=== PATIENT | male | born 1960 | race Caucasian/White ===

== ENCOUNTER 2023-04-15 21:15 | Observation (INO) | payer OTHER, BC, SELFPAY ==
[2023-04-15] VITALS (8 sets, daily range): BP systolic 165–229; BP diastolic 97–117; PULSE 65–79; RESP 13–20; TEMP 36.9; O2SAT 97–98; BMI 25.8
[2023-04-15] MEDS: ONDANSETRON 4 MG/2 ML INJ IV (21:36)
[2023-04-15 21:43] LABS: Add Manual Diff / Slide Review NO; Basophils Absolute Auto 0 /uL (0-100); Basophils Percent Auto 0.2 % (0-2); Eosinophils Absolute Auto 0 /uL (0-450); Eosinophils Percent Auto 0.2 % (2-4); Hematocrit 41.2 % (41-53); Hemoglobin 14.7 g/dL (13.5-17.5); Lymphocytes Absolute Auto 1200 /uL (1100-4500); Lymphocytes Percent Auto 7.3 % (25-40); Mean Corpuscular HGB Conc 35.6 % (30-36); Mean Corpuscular Hemoglobin 32.3 PG (26-34); Mean Corpuscular Volume 90.7 fL (80-100); Monocytes Absolute Auto 1100 /uL (0-900); Monocytes Percent Auto 6.4 % (3-14); Neutrophils Absolute Auto 14700 /uL (1500-7000); Neutrophils Percent Auto 85.9 % (50-75); Platelet Count 269 X10^3/uL (150-400); Red Blood Cell Count 4.54 X10^6/uL (4.5-5.9); White Blood Cell Count 17.1 X10^3/uL (4.5-11.0)
[2023-04-15 21:55] LABS: Alanine Aminotransferase 27 IU/L (<50); Albumin 4.7 g/dL (3.5-5.0); Albumin Globulin Ratio 1.4 (1.0-2.8); Alkaline Phosphatase 54 U/L (38-126); Aspartate Aminotransferase 27 IU/L (17-59); BUN Creatinine Ratio 20.3 (6-22); Bilirubin Total 1.1 mg/dL (0.2-1.3); Blood Urea Nitrogen 15 mg/dL (9-20); Calcium 9.4 mg/dL (8.4-10.2); Carbon Dioxide 26 mmol/L (22-32); Chloride 100 mmol/L (98-107); Estimated Glomerular Filt Rate > 60 mL/min (>60); Globulin 3.3 g/dL (1.7-4.1); Glucose 118 mg/dL (80-110); HEMOLYSIS 15 (0-50); Lipase 288 U/L (23-300); Potassium 4.2 mmol/L (3.4-5.1); Sodium 135 mmol/L (137-145)
[2023-04-15 22:27] LABS: Bacteria Urine Occasional (0-1); Mucus Urine 2+ (Negative); RBC Urine 10-30/HPF (0-5/HPF); Squamous Epithelial Cell Urine 0-1 /HPF (0-5/HPF); WBC Urine 0-1/HPF (0-5/HPF)
[2023-04-15 22:28] LABS: Culture Indicated Urine Cult Not Indicated
--- NOTE | 2023-04-15 22:35 | DI.CT.S_ITS ---
PROCEDURE: CT ABDOMEN PELVIS W CON INDICATIONS: abdominal pain, right side with leukocytosis TECHNIQUE: After the administration of IV contrast, axial sections were acquired from the lung bases to the pubic symphysis. Coronal and sagittal reformats were performed. For radiation dose reduction, the following was used: automated exposure control, adjustment of mA and/or kV according to patient size. COMPARISON: None. FINDINGS: Image quality: Excellent. Lung bases: Unremarkable. Heart: Heart is normal in size. ABDOMEN: Liver: No mass lesion. Gallbladder: Within normal limits without calcified gallstones. Biliary ducts: No biliary ductal dilatation. Pancreas: Unremarkable. Spleen: Normal in size. Adrenal Glands: No adrenal nodules. Kidneys and Ureters: No hydronephrosis. There are bilateral renal cysts as well as smaller low-density foci in the kidneys which are too small to characterize but likely represent cysts. Focal renal cortical thinning in the right kidney may represent sequelae of prior infection, trauma, or infarct. Stomach and Bowel: Stomach, small bowel loops, and colon are normal in caliber and wall thickness. The appendix is distended, measuring up to 1.1 cm with mild wall thickening and enhancement as well as periappendiceal fat stranding and trace free fluid. No periappendiceal abscess. There is a small appendicolith present. Peritoneum: There is trace free fluid in the right lower quadrant. No free air. Ventral Wall: No hernia. Abdominal Nodes: No retroperitoneal or mesenteric adenopathy by size criteria. Vessels: Aorta and inferior vena cava are normal in size. PELVIS: Pelvic Organs: Unremarkable. Bladder: Unremarkable. Pelvic Nodes: No enlarged lymph nodes. Miscellaneous: No inguinal hernias are seen. Bones: Visualized osseous structures demonstrate no suspicious focal lesions. IMPRESSION: 1. Findings consistent with acute appendicitis. Small appendicolith is present without definite evidence of perforation. Findings discussed with Dr. Rocha on 04/15/2023 at 11:33 p.m.. Dictated by: Wayne Tao M.D. on 04/15/2023 at 23:22 Approved by: Wayne Tao M.D. on 04/15/2023 at 23:35
--- NOTE | 2023-04-15 22:46 | ED_ITS ---
HPI - General Adult General Chief complaint: Abdominal Pain Stated complaint: sharp ABD pain Time Seen by Provider: 04/15/23 22:35 Source: patient Mode of arrival: Ambulatory History of Present Illness HPI narrative: 62-year-old gentleman visiting from [facility] with no significant medical history was doing well until earlier today when he began developing lower abdominal pain that has since localized into his right lower quadrant. He is nauseated but has not actually vomited. Feels that it is getting worse. He describes normal bowel movement earlier today. No palpitations, fevers, cough, chills. Has never had similar symptoms. He is had no abdominal surgeries Related Data Allergies Allergy/AdvReac Type Severity Reaction Status Date / Time No Known Drug Allergies Allergy Verified 04/15/23 21:47 Review of Systems Review of Systems Narrative: Pertinent positive and negative findings as per HPI Patient History Social History Smoking Status: Never smoker Smoking Status: Never smoker Substance Use Type: does not use Exam Initial Vital Signs Initial Vital Signs: Vital Signs Temperature 98.5 F 04/15/23 21:26 Pulse Rate 79 04/15/23 21:26 Respiratory Rate 16 04/15/23 21:26 Blood Pressure 229/117 H 04/15/23 21:26 Pulse Oximetry 98 04/15/23 21:26 Oxygen Delivery Method Room Air 04/15/23 21:26 General: Healthy appearing, in no acute distress. Able to give a complete and coherent history. Well-nourished well-developed HEENT: Moist mucous membranes, normal sclera with reactive pupils, Respiratory: Lungs are clear to auscultation, no wheezing no rales no rhonchi. Full and symmetrical air movement Cardiac: Regular rate and rhythm no murmurs no bruits Abdomen: Soft, tenderness in the right lower quadrant with developing rebound. No flank pain Skin: Warm and dry, no rashes Neurologic: Grossly neurologically intact with no obvious asymmetries or abnormalities Extremities: No trauma, well perfused Psych: Cooperative, appropriate insight and affect Course Orders Ordered: ED Orders 04/15/23 21:32 EKG-12 Lead Stat 04/15/23 21:36 Complete Blood Count AUTO DIFF Stat Comprehensive Metabolic Panel Stat Lipase Stat 04/15/23 22:02 Urine Microscopic Stat 04/15/23 22:35 CT abdomen pelvis w con Stat Sodium Chloride (Normal Saline 0.9%) 1,000 mls @ 1,000 mls/hr IV BOLUS ONE Stop: 04/15/23 23:49 Last Infusion: 04/15/23 23:42 Dose: 0 mls/hr Documented By: Admin: 04/15/23 22:59 Dose: 1,000 mls/hr Documented By: MONIKA Ondansetron HCl (Ondansetron 4 Mg/2 Ml Inj) 4 mg IV NOW PRN PRN Reason: Nausea And Vomiting Last Admin: 04/15/23 21:36 Dose: 4 mg Documented By: MONIKA Discontinued Medications Piperacillin Sod/Tazobactam (Sod 4.5 gm/ Sodium Chloride) 100 mls @ 200 mls/hr IV NOW ONE Stop: 04/15/23 23:42 Ketorolac Tromethamine (Ketorolac 30 Mg/Ml Vial) 15 mg IV NOW ONE Stop: 04/15/23 22:51 Last Admin: 04/15/23 22:58 Dose: 15 mg Documented By: MONIKA Ondansetron HCl (Ondansetron 4 Mg/2 Ml Inj) 4 mg IV NOW ONE Stop: 04/15/23 22:51 Last Admin: 04/15/23 23:11 Dose: Not Given Documented By: MONIKA Vital Signs Vital signs: Vital Signs - 8 hr 04/15/23 21:26 04/15/23 21:36 04/15/23 21:36 Temperature 98.5 F Pulse Rate 79 74 Respiratory Rate 16 20 Blood Pressure 229/117 H 198/108 H Pulse Oximetry 98 98 Oxygen Delivery Method Room Air 04/15/23 22:00 04/15/23 22:00 Temperature Pulse Rate 71 Respiratory Rate 15 Blood Pressure 169/103 H Pulse Oximetry 98 Oxygen Delivery Method Medical Decision Making Lab Data 04/15/23 21:36 04/15/23 21:36 Labs: Lab Results 04/15/23 04/15/23 04/15/23 Range/Units 21:36 21:36 22:02 WBC 17.1 H (4.5-11.0) X10^3/uL RBC 4.54 (4.5-5.9) X10^6/uL Hgb 14.7 (13.5-17.5) g/dL Hct 41.2 (41-53) % MCV 90.7 (80-100) fL MCH 32.3 (26-34) PG MCHC 35.6 (30-36) % RDW 12.0 (11.6-14.8) % Plt Count 269 (150-400) X10^3/uL Neut % (Auto) 85.9 H (50-75) % Lymph % (Auto) 7.3 L (25-40) % [place] % (Auto) 6.4 (3-14) % Eos % (Auto) 0.2 L (2-4) % Baso % (Auto) 0.2 (0-2) % Neut # (Auto) 76550 H (5455-1127) /uL Lymph # (Auto) 1200 (0775-8345) /uL [place] # (Auto) 1100 H (0-900) /uL Eos # (Auto) 0 (0-450) /uL Baso # (Auto) 0 (0-100) /uL Sodium 135 L (137-145) mmol/L Potassium 4.2 (3.4-5.1) mmol/L Chloride 100 (98-107) mmol/L Carbon Dioxide 26 (22-32) mmol/L BUN 15 (9-20) mg/dL Creatinine 0.74 (0.66-1.25) mg/dL Estimated GFR > 60 (>60) mL/min BUN/Creatinine Ratio 20.3 (6-22) Glucose 118 H (80-110) mg/dL Calcium 9.4 (8.4-10.2) mg/dL Total Bilirubin 1.1 (0.2-1.3) mg/dL AST 27 (17-59) IU/L ALT 27 (<50) IU/L Alkaline Phosphatase 54 (38-126) U/L Total Protein 8.0 (6.3-8.2) g/dL Albumin 4.7 (3.5-5.0) g/dL Globulin 3.3 (1.7-4.1) g/dL Albumin/Globulin Ratio 1.4 (1.0-2.8) Lipase 288 (23-300) U/L Urine RBC 10-30/hpf H (0-5/HPF) Urine WBC 0-1/hpf (0-5/HPF) Ur Squamous Epith Cells 0-1 /hpf (0-5/HPF) Urine Bacteria Occasional (0-1) (None) Urine Mucus 2+ H (Negative) Ur Culture Indicated? Cult not indicated Urine Dip Bedside Urine Glucose Negative Bedside Urine Bilirubin - Negative Bedside Urine Ketone - Negative Urine Specific [place] 1.02 Bedside Urine Occult Blood +++ Bedside Urine pH 6 Bedside Urine Protein - Negative Bedside Urine Urobilinogen - Negative Bedside Urine Nitrite - Negative Bedside Urine Leukocytes - Negative Esterase Point of care testing: Urine Dip Bedside Urine Glucose Negative Bedside Urine Bilirubin - Negative Bedside Urine Ketone - Negative Urine Specific [place] 1.02 Bedside Urine Occult Blood +++ Bedside Urine pH 6 Bedside Urine Protein - Negative Bedside Urine Urobilinogen - Negative Bedside Urine Nitrite - Negative Bedside Urine Leukocytes - Negative Esterase MDM Narrative Medical decision making narrative: CC: Acute right lower quadrant abdominal pain Data collected from: patient, Social determinants of health that may influence the patients condition: Patient lives in [facility] and is scheduled to fly home tomorrow Differential considered: Appendicitis, bowel obstruction, pyelonephritis, ureterolithiasis, gastroenteritis Exam documented above, pertinent findings include: Significant tenderness with rebound developing in the right lower quadrant Lab Test results independently reviewed as above. Pertinent findings: CBC shows significant leukocytosis at 17.1 with left shift at 85.9% normal H&H Chemistries are reassuring Urine has some red cells no white cells no bacteria and some mucus culture is not indicated Independently reviewed EKG sinus rhythm at a rate of 72. Normal intervals, nor mal axis. No acute ischemic changes Imaging studies independently reviewed: Phone call from radiology indicating acute appendicitis with appendicolith appreciated, no perforation and no abscess development Consultations: Care is reviewed with Dr. Jj, general surgery. She will admit the patient with anticipation of appendectomy tomorrow Treatments: Pain control, antibiotics, fluids Discussion: Findings of significant leukocytosis and positive appendicitis appreciated on CT scan reviewed with patient. He understands the need for surgical intervention and is willing to stay in this hospital. Questions are answered. At this point pain is adequately controlled. Transition orders are written will start him on Zosyn and continue maintenance fluids with NPO status. He is safe for transfer to the floor Discharge Plan Departure Patient Disposition: Admitted as Observation Clinical Impression: Acute appendicitis Admit Date/Time: 04/15/23 23:39 Admit Provider: Steffanie Jj
[2023-04-15] MEDS: KETOROLAC 30 MG/ML VIAL 15 MG IV (22:58)
[2023-04-15] MEDS: SODIUM CHLORIDE 0.9% 1,000 ML 1000 ML IV (22:59)
[2023-04-15] MEDS: PIPERACILLIN/TAZO 4.5 GM in SODIUM CHLORIDE 0.9% 100 ML IV (23:48)
[2023-04-15] MEDS: SODIUM CHLORIDE 0.9% 1,000 ML 125 ML IV (23:49)
[2023-04-16] VITALS (11 sets, daily range): BP systolic 130–164; BP diastolic 79–96; PULSE 65–107; RESP 10–22; TEMP 36.1–37; O2SAT 96–98; BMI 26.2
--- NOTE | 2023-04-16 | PATH_ITS ---
[facility] Accession Number: [id number] No. of containers..01 Tissue . 01 Material submitted: . appendix - APPENDIX . 01 Diagnosis: Appendix, Appendectomy: Marked acute appendicitis with serositis. No evidence of neoplasm. [facility] 04/19/2023 1538 Local . 01 Electronically signed: . Raphael Evans MD, PhD, Pathologist NPI- [id number] . 01 Gross description: . The specimen is received in formalin labeled with the patient's name, , and appendix, and consists of a rene, vermiform appendix measuring 4.5 cm in length by 0.9 cm in diameter. The serosa is christina-rene with adherent material consistent with exudate. The margin is inked blue. Sectioning reveals a patent lumen averaging 0.9 cm in diameter containing brown semisolid material. No fecaliths, perforations, or lesions are identified. Director Electrical Engineering sections to include the margin, one-half of the bisected distal tip, and cross section are submitted in cassette A1. ([id number]) /[facility] 04/18/2023 0358 Local . 01 Pathologist provided ICD-10: K35.80 . 01 CPT . 116903 Specimen Comment: A courtesy copy of this report has been sent to [phone] Performed at: 01 [facility] [address] [place] [address], [place], [place] [id number] MD Wayne Coello MD Phone: [phone]
[2023-04-16 05:41] LABS: MRSA (Nasal) PCR Not Detected (Not Detect)
[2023-04-16] MEDS: PIPERACILLIN/TAZO 3.375 GM in SODIUM CHLORIDE 0.9% 100 ML IV ×2 (05:54→13:55)
[2023-04-16] MEDS: HYDROMORPHONE 0.5 MG INJ IV ×2 (05:57→08:28)
[2023-04-16] MEDS: ONDANSETRON 4 MG/2 ML INJ IV (05:57)
--- NOTE | 2023-04-16 09:09 | CM.DANOTE ---
Patient is a 62 yo male who was admitted on 04/15/23 for Abd Pain. Pt has [employer] and [employer] for insurance and his PCP is in [place]. EMR was reviewed. Per Surgeon, pt with acute appendicitis and plan is surgical intervention today. Per RN, pt is here visiting from [place] and active and independent at baseline and Surgeon currently bedside with plan to be taken to OR in a few minutes for surgery. Pt NPO. Plan: SW to follow closely after surgical intervention this morning as pt off floor at 0915 to surgery to determine any discharge planning needs. KELLI Edmond Discharge Planning/Care Management CM Discharge Assessment Start: 04/16/23 09:08 Freq: Status: Active Protocol: Document 04/16/23 09:08 BF (Rec: 04/16/23 09:09 [id number]) Discharge Planning Assessment Assigned Wheel Blocker KELLI Hamilton DPOA/Assigned Designee Name informally spouse Franklin Contact Information [phone] Advance Directives? No Advance Directives on File No History Provided By Patient,Medical Record Has Patient been admitted in last 30 No days? Prior Living Arrangements House Comment 0 STEPS Household Members spouse Type of transporation used prior to Drives own vehicle admit Independent with ADL's Yes Is patient alert and oriented? Yes Caregiver for Another No Barriers to Discharge No Discharge Plan Home Transportation Arrangement Likely friend or family Referrals Initiated None needed Additional Comment Pending progress after surgery Whiteboard Updated in Patient Room with Yes name and ext. # of Wheel Blocker Review Status In Process Please Provide Date Initial DC 04/16/23 Assessment Was Performed Next Review Type Continued Stay Review
--- NOTE | 2023-04-16 09:16 | PC.NURSE ---
Day Shift Pt to surgery at 0915. Report given to Pepper HOWELL.
--- NOTE | 2023-04-16 09:33 | P.HP_ITS ---
History of Present Illness History of Present Illness Date Patient Seen: 04/16/23 Time Patient Seen: 09:33 Chief complaint: sharp ABD pain Narrative: Cuauhtemoc is a 62-year-old man who is visiting his mother from [place]. He was scheduled to fly back when he noticed sharp abdominal pain in his right lower quadrant yesterday. He came in was found to have leukocytosis and a CT scan demonstrated acute appendicitis without evidence of complication. He is generally healthy. [facility] Medical History (Updated 04/16/23 @ 01:12 by Shikha Hope RN) HTN (hypertension) Family History (Updated 04/16/23 @ 01:13 by Shikha Hope RN) Father Lung cancer Social History household members: spouse Smoking Status: Never smoker Meds Home Medications and Allergies Home Medications Medication Instructions Recorded Confirmed Type albuterol sulfate 90 mcg/actuation 2 inh inhalation Q4H PRN Shortness 04/16/23 04/16/23 History aerosol inhaler Of Breath fluticasone 100 mcg-salmeterol 50 1 inh inhalation DAILY 04/16/23 04/16/23 History mcg/dose blistr powdr for inhalation (Advair Diskus) losartan 25 mg tablet (Cozaar) 25 mg PO DAILY 04/16/23 04/16/23 History Allergies Allergy/AdvReac Type Severity Reaction Status Date / Time No Known Drug Allergies Allergy Verified 04/16/23 09:28 Exam Vital Signs (past 8 hours): - 04/16/23 08:38 04/16/23 08:00 Temperature 98.6 F Pulse Rate 77 Respiratory Rate 16 Blood Pressure 153/93 H Pulse Oximetry 97 Oxygen Delivery Method Room Air Oxygen Flow Rate 0 Oxygen Delivery Method Room Air Oxygen Flow Rate 0 Narrative Exam Narrative: Abdomen is soft but tender to palpation at McBurney's point Objective Labs 04/15/23 21:36 04/15/23 21:36 Labs: Laboratory Results - last 24 hr 04/15/23 04/15/23 04/15/23 21:36 21:36 22:02 WBC 17.1 H RBC 4.54 Hgb 14.7 Hct 41.2 MCV 90.7 MCH 32.3 MCHC 35.6 RDW 12.0 Plt Count 269 Neut % (Auto) 85.9 H Lymph % (Auto) 7.3 L [place] % (Auto) 6.4 Eos % (Auto) 0.2 L Baso % (Auto) 0.2 Neut # (Auto) 36760 H Lymph # (Auto) 1200 [place] # (Auto) 1100 H Eos # (Auto) 0 Baso # (Auto) 0 Sodium 135 L Potassium 4.2 Chloride 100 Carbon Dioxide 26 BUN 15 Creatinine 0.74 Estimated GFR > 60 BUN/Creatinine Ratio 20.3 Glucose 118 H Calcium 9.4 Total Bilirubin 1.1 AST 27 ALT 27 Alkaline Phosphatase 54 Total Protein 8.0 Albumin 4.7 Globulin 3.3 Albumin/Globulin Ratio 1.4 Lipase 288 Urine RBC 10-30/hpf H Urine WBC 0-1/hpf Ur Squamous Epith Cells 0-1 /hpf Urine Bacteria Occasional (0-1) Urine Mucus 2+ H Ur Culture Indicated? Cult not indicated Nasal Screen MRSA (PCR) 04/16/23 00:24 WBC RBC Hgb Hct MCV MCH MCHC RDW Plt Count Neut % (Auto) Lymph % (Auto) [place] % (Auto) Eos % (Auto) Baso % (Auto) Neut # (Auto) Lymph # (Auto) [place] # (Auto) Eos # (Auto) Baso # (Auto) Sodium Potassium Chloride Carbon Dioxide BUN Creatinine Estimated GFR BUN/Creatinine Ratio Glucose Calcium Total Bilirubin AST ALT Alkaline Phosphatase Total Protein Albumin Globulin Albumin/Globulin Ratio Lipase Urine RBC Urine WBC Ur Squamous Epith Cells Urine Bacteria Urine Mucus Ur Culture Indicated? Nasal Screen MRSA (PCR) Not detected Assessment & Plan Assessment and plan (1) Acute appendicitis: Qualifiers: Acute appendicitis type: with localized peritonitis Appendicitis abscess presence: without abscess Appendicitis gangrene presence: without gangrene Appendicitis perforation presence: without perforation Qualified Code(s): K35.30 - Acute appendicitis with localized peritonitis, without perforation or gangrene Status: Acute Plan We reviewed the risks and benefits of laparoscopic appendectomy versus antibiotic therapy. He would like to proceed with laparoscopic appendectomy. He has been started on Zosyn. Quality VTE Deep Vein Thrombosis/Pulmonary Embolism Present on Admission: No
[2023-04-16] MEDS: LACTATED RINGERS 1,000 ML 42 ML IV ×2 (09:39→10:49)
--- NOTE | 2023-04-16 10:52 | SUR.OPER ---
Supine on padded OR bed, head on pillow, left arm padded and tucked at sides, right arm on padded armboard at < 90 degrees, legs uncrossed, safety belt at thigh, tape over blanket over lower legs .
[2023-04-16] MEDS: BUPIVACAINE 0.5% (PF) 30 ML, EPINEPHrine 0.15 MG INJ (11:10)
--- NOTE | 2023-04-16 11:55 | PM.OP.1 ---
Operative Date/Time/Diagnoses Date of procedure: 04/16/23 Time of procedure: 11:56 Pre-op diagnosis: Acute appendicitis Post-op diagnosis: same Procedure & Clinicians Procedure: Laparoscopic appendectomy Same procedure as scheduled: Yes Surgeon: Cuauhtemoc Burrell Anesthesia Type: General Operative Notes Procedure in detail: The patient was on IV antibiotics. The patient was brought to the operating room, placed on the table in the supine position and general endotracheal anesthesia was induced. A Nunes catheter was placed to decompress the bladder. A time-out was performed. The abdomen was prepped and draped in the usual fashion. After injection of 0.25% Marcaine a 1 cm infraumbilical incision was created with a 15 blade scalpel. The umbilical stalk was grasped with a Kt clamp to elevate the abdominal wall. The infraumbilical midline fascia was cleared over 1 cm and the fascia was scored with cautery. The peritoneum was pierced with a Peon clamp. The Sean port was placed and the abdomen was insufflated to 15 mmHg. The camera was inserted and there was no evidence of any injury from the entry. Next, 5 mm ports were placed in the suprapubic and left lower quadrant positions under direct vision. The patient was placed in Trendelenburg with the right-side elevated. The terminal ileum was swept away from the cecum and the appendix was visualized. The appendix was inflamed and distended but not perforated. The mesoappendix was divided with the Power-seal to the base. The specimen was divided at its base with a single firing of the Endo-STEPH stapler with a blue load. The specimen was placed in a Endo-Catch bag. A small amount of fluid with suctioned from the base of the appendix and pelvis. The table was flattened and the terminal ileum and omentum were allowed to slide in over the appendiceal stump. Finally, the 5 mm ports were removed under direct vision. The pneumoperitoneum was released and the Sean port was removed followed by the Endo-Catch bag. Additional local was injected into the fascia and the infraumbilical incision was closed with 2 interrupted 2-0 Vicryl sutures. The skin incisions were closed with 4 Monocryl. Steri-Strips were applied followed by Band-Aids. EBL: 25 mL Specimen: Appendix Post-operative Condition: stable Disposition: PACU
--- NOTE | 2023-04-16 12:44 | SUR.PHASEI ---
Pt transferred to room 229. SBAR report and handoff to Addie HOWELL.
[2023-04-16] MEDS: IBUPROFEN 600 MG TABLET PO (15:58)
[2023-04-16] MEDS: ACETAMINOPHEN 325 MG TABLET 650 MG PO (15:58)
--- NOTE | 2023-04-16 18:45 | PC.NURSE ---
Discharge Patient back to room 229 after surgery, alert and oriented, denied pain. Band-aids to abdomen C/D/I. At approx 1400 pt called asking about possibility of going home today as he was eating and drinking with no nausea or pain, voiding, passing flatus, and ambulating without issue in room. Dr. Burrell called and updated on the above. Order received for d/c after 1300 dose of zosyn complete. Pt discharged to home with niece at 1840. Escorted to hospital exit via wheelchair by staff member. Tylenol and ibuprofen administered prior to d/c, pain 09/08. Written and verbal d/c instructions given on appendectomy, laparoscopy, and [facility] surgeons wound care instructions. All questions answered.
== END 2023-04-16 18:40 | disposition home or self-care (01) ==
LOC: ED 22:35 → AC 23:40 → ICU 04-16 00:18
PROVIDERS: Surgery; Admitting Provider Surgery; Emergency Provider Emergency Medicine; Visit Provider Surgery
PROC: 0DTJ4ZZ Resection of Appendix, Percutaneous Endoscopic Approach (ICD-10-PCS; CPT 44970; principal; 2023-04-16 10:00)
DX: K35.80 Unspecified acute appendicitis (principal); Z20.822 Contact with and (suspected) exposure to COVID-19
CPT/HCPCS: 44970; 36415; 74177; 80053; 81003; 81015; 83690; 85025; 87797; 93005; 96361; 96365; 96375; 96376; 99222; 99284; G0378; J0171; J0330; J1100; J1170; J1885; J2250; J2405; J2543; J2704; J3010; Q9967